=== PATIENT | male | born 1985 | race Caucasian/White ===

== ENCOUNTER → 2020-02-07 08:47 | Outpatient (CLI) | payer BC, SELFPAY ==
--- NOTE | ~2020-02-07 | XR_ITS ---
EXAMINATION: XR lumbar spine 2-3V DATE: 02/07/2020 09:08 INDICATION: Chronic back pain TECHNIQUE: Anteroposterior and lateral views of the lumbar spine, and cone-down lateral view of the l umbosacral junction were obtained. COMPARISON: 11/26/2014 FINDINGS: There are 2 mm of anterolisthesis of L5 on S1. The vertebral body heights are maintained. T here is no fracture. There is mild loss of intervertebral disc space height at L5-S1. The bowel gas p attern is normal. IMPRESSION: 1. Mild lumbar spondylosis without acute findings. Reviewed, dictated and finalized at location A. E[facility] HOST
== END ==
DX: G89.29 Other chronic pain (principal); M54.9 Dorsalgia, unspecified; M47.896 Other spondylosis, lumbar region
CPT/HCPCS: 72100